=== PATIENT | female | born 1990 | race Caucasian/White ===

== ENCOUNTER 2020-12-19 05:45 | Day surgery (SDC) | payer OTHER ==
[2020-12-19] MEDS ORDERED: NEXPLANON68 MG SUB-Q (06:05)
--- NOTE | 2020-12-19 08:39 | NUR ---
PT ALERT, ORIENTED AND SUPPORTED BY HER SIG OTHER M[place]. PT IS PLEASANT, SEEMS INFORMED, ALL QUESTIONS ASKED ANSWERED. PT DID REQUEST PRAYER. M[place]ISON WILL STAY IN BLDG. GAVE BLESSING AND WILL FOLLOW NEEDED
--- NOTE | 2020-12-19 08:43 | NUR ---
12/19/20 0843 Lizbeth Redd 0840 PT ARRIVED IN PACU SLEEPY WITH NO C/O'S.
[2020-12-19] MEDS ORDERED: ACETAMINOPHEN500 MG PO (08:58)
[2020-12-19] MEDS ORDERED: OXYCODON-ACETA1 EAC2 PO (08:58)
[2020-12-19] MEDS ORDERED: IBUPROFEN600 MG PO (08:58)
--- NOTE | 2020-12-19 09:12 | NUR ---
PT IS BACK TO DS FROM PACU. SHE IS SLIGHTLY DROWSY, BUT EASILY WAKES UP TO ANSWER QUESTIONS APPROPRIATELY. IS AT THE BEDSIDE. WATER ON BEDSIDE TABLE. CALL LIGHT WITHIN REACH. DENIES WANTING A SNACK, BUT WOULD LIKE TO SIT UP A LITTLE BIT. NO ADDITIONAL NEEDS AT THIS TIME.
--- NOTE | 2020-12-19 10:22 | NUR ---
PATIENT ASSISTED OOB AND TO BATHROOM. GAIT STEADY. VOID WITHOUT DIFFICULTY. GAIT STEADY BACK TO ROOM. BANDAID AT UMBILICAL SITE SATURATED AND LEAKING. BANDAID REMOVED. 2X2 GUAZE AND TAPE PLACED OVER UMBLICAL SITE. IV SALINE LOCKED. VS CHECKED. AT BEDSIDE. PATIENT MEDICATED FOR PAIN WITH 1 TAB OF PERCOCET. PATIENT GETTING DRESSED WITH HELP FROM . CALL LIGHT WITHIN REACH.
--- NOTE | 2020-12-19 10:31 | NUR ---
JALEESA 0945: PT GIVEN APPLE SAUCE, SALTINES, AND APPLE JUICE.
--- NOTE | 2020-12-21 14:40 | PATH ---
[facility] [address] [facility] [employer], [place] [address] Signed SPECIMEN(S): A GALLBLADDER WITH STONES SPECIMEN SOURCE: A. GALLBLADDER WITH STONES CLINICAL HISTORY: Caculus of gallbladder with cholecystitis. FINAL PATHOLOGIC DIAGNOSIS: Gallbladder, cholecystectomy: - Chronic cholecystitis with cholesterolosis. - Cholelithiasis. NAL:cml:C2NR MICROSCOPIC EXAMINATION: Histologic sections of all submitted blocks are examined by light microscopy. These findings, together with the gross examination, support the pathologic diagnosis. GROSS DESCRIPTION: The specimen, labeled "SR," and designated on the requisition "gallbladder with stones," is received in formalin and consists of Specimen: Previously opened gallbladder. Dimensions: 8.9 x 4.1 x 0.5 cm. Serosa: Yellow-hayward smooth. Cystic Duct: unobstructed. Calculi: Four yellow bosselated calculi (0.8 x 0.7 x 0.4 cm in aggregate). Mucosa: Yellow hayward and velvety with yellow stippling. Wall thickness: 0.4 cm. Lymph node: Not grossly identified Additional: None. Emergency Room Tech sections are submitted in cassette (A1). AC (under the direct supervision of a pathologist) The Gross Description was prepared using a voice recognition system. The report was reviewed for accuracy; however, sound-alike word errors, addition and/or deletions may occur. If there is any question about this report, please contact Client Services. PERFORMING LABORATORY: The technical component was performed by [facility], [address] [place] [id number] ([employer] Specialist: Bijal Patterson MD; CLIA# [id number]). PATIENT NAME: ALEJANDRO MOTA PATHOLOGY DATE OF : [birth year] REPORT #: [id number] PHYSICIAN: STACEY PATHOLOGY PCP: NO PRIMARY CARE PHYSICIAN REPORT IS CONFIDENTIAL AND NOT TO BE RELEASED WITHOUT AUTHORIZATION [facility] [address], [place] [address] Signed Professional interpretation was performed by [facility], [address] [address] (CLIA# [id number]). Diagnostician: Keshia Freeman MD Pathologist Electronically Signed 12/21/2020 Copies: ~ PATIENT NAME: ALEJANDRO MOTA PATHOLOGY DATE OF : [birth year] REPORT #: [id number] PHYSICIAN: STACEY PATHOLOGY PCP: NO PRIMARY CARE PHYSICIAN REPORT IS CONFIDENTIAL AND NOT TO BE RELEASED WITHOUT AUTHORIZATION
--- NOTE | 2020-12-26 14:34 | OR ---
[facility] [address] [place], [place] [address] Signed DATE OF OPERATION: 12/19/2020 SURGEON: Jim Sue MD PREOPERATIVE DIAGNOSES: 1. Chronic calculous cholecystitis. 2. History of sleeve gastroplasty for obesity. POSTOPERATIVE DIAGNOSES: 1. Chronic calculous cholecystitis. 2. History of sleeve gastroplasty for obesity. 3. Right fundic uterine fibroid (large). PROCEDURES: 1. Laparoscopic cholecystectomy with intraoperative cholangiogram. 2. Surgeon-directed fluoroscopy. ANESTHESIA: General endotracheal, Juan Davalos CRNA and local 20 mL of 0.25% Marcaine with epinephrine. INDICATION: This 30-year-old white woman has had rather typical symptoms right upper abdominal and right subscapular pain following meals. She had an episode in early November, which was evaluated in [place] including a gallbladder ultrasound, which showed multiple stones. In addition, her bilirubin was elevated at 1.6, SGOT 1141, and SGPT of 876. Her symptoms resolved over time and currently she is being very careful regarding dietary intake, so as to avoid recurrence of the symptoms. I have recommended cholecystectomy, preferably by laparoscopic approach. She understands the risks of bleeding, infection, bile duct injury, need for open procedure, and other unforeseen complications and wished to proceed. Of additional note, the patient lost 60 pounds through a bariatric surgical procedure (sleeve gastrectomy). DESCRIPTION OF PROCEDURE: The patient was brought to the operating room, given a general endotracheal anesthetic. Preoperative antibiotic Ancef was given. Sequential compression device stockings were used and heparin subcutaneously administered. The abdomen was prepared with chlorhexidine solution and draped sterilely. There were several small laparoscopic Electronically Signed By: JIM SUE MD 12/26/20 1434 PATIENT NAME: ALEJANDRO MOTA OPERATIVE REPORT DATE OF : [birth year] REPORT #: [id number] PHYSICIAN: JIM SUE MD PCP: NO PRIMARY CARE PHYSICIAN REPORT IS CONFIDENTIAL AND NOT TO BE RELEASED WITHOUT AUTHORIZATION [facility] [address] [place], [place] [address] Signed trocar site incisions noted. An infraumbilical incision was made and using an open Avi cannula technique, the abdomen was entered and pneumoperitoneum achieved to a level of 14 mmHg of carbon dioxide gas. Intraabdominal inspection showed no sign of ascites or carcinomatosis. The gallbladder appeared chronically inflamed, not acutely inflamed and not particularly distended. Indeed, it was somewhat floppy in appearance. Three additional trocars were placed in usual configuration in the subxiphoid, right midclavicular, and right anterior axillary line. Intraabdominal inspection showed no significant scarring in the upper abdomen related to prior gastroplasty. Evaluation of the lower abdomen showed an erythematous slightly inflamed mass in the pelvis, which was later re-evaluated and ultimately found to be a fundic uterine leiomyoma. The gallbladder was elevated cephalad and retracted laterally and using blunt and electrocautery dissection, the triangle of Calot was dissected free. The cystic duct was easily identified as was the cystic artery. Cystic artery was doubly clipped and clip was applied across gallbladder cystic duct junction. A transverse choledochotomy was made in the cystic duct and Egress of clear bile was noted upon retrograde milking of the duct. Using the Guillaume-type cholangiocatheter, intraoperative cholangiography was undertaken showing free flow of contrast in the biliary tree with prompt emptying into the duodenum. There was no sign of filling defect or other abnormality. The catheter was removed and the cystic duct was triply clipped and divided and the gallbladder dissected free in a retrograde fashion using electrocautery. The gallbladder was extracted through the infraumbilical port site without problem, opened on the back table and found to have mulberry-appearing yellow gallstones that were small. There was no sign of neoplasm of the gallbladder mucosa. Irrigation was undertaken in subhepatic space. There was no sign of bleeding, bile leak, or other problems. Excess irrigation fluid was suctioned free. Reinspection of the lower abdominal findings was undertaken showing the erythematous lesion to actually be a relatively large uterine fibroid at the superior lateral aspect of the right cornu of the uterus. The round ligament and fallopian tube were independently free of this area. The ovary proper was not able to be identified and I did not feel it warranted too much further manipulation, assured that the lesion of the uterus indeed was a uterine fibroid. The trocars were then removed under direct visualization showing no sign of bleeding except for minimal oozing of one of the 5 mm ports on the right side. This was secured with electrocautery. Plans were then made for closure. A 10 mL of 0.25% Marcaine with epinephrine was injected at the umbilical port site and an additional 10 mL in the other 3 ports in the upper abdomen. The skin was then closed with interrupted 3-0 Vicryl. Steri-Strips were applied. The patient was extubated and taken to recovery room in good condition having suffered no complications. Sponge, needle, and counts were correct x3. Blood loss was minimal. There were no complications. Electronically Signed By: JIM SUE MD 12/26/20 1434 PATIENT NAME: ALEJANDRO MOTA OPERATIVE REPORT DATE OF : [birth year] REPORT #: [id number] PHYSICIAN: JIM SUE MD PCP: NO PRIMARY CARE PHYSICIAN REPORT IS CONFIDENTIAL AND NOT TO BE RELEASED WITHOUT AUTHORIZATION [address] [place] [address] Signed MD LITTLE Adams/CORKY /[id number] cc: Parul Weinstein MD Copies: PARUL WEINSTEIN MD ~ Electronically Signed By: JIM SUE MD 12/26/20 1434 PATIENT NAME: ALEJANDRO MOTA OPERATIVE REPORT DATE OF : [birth year] REPORT #: [id number] PHYSICIAN: JIM SUE MD PCP: NO PRIMARY CARE PHYSICIAN REPORT IS CONFIDENTIAL AND NOT TO BE RELEASED WITHOUT AUTHORIZATION
== END 2020-12-19 10:43 | disposition home or self-care (01) ==
LOC: DS 05:45 → OPS 05:45 → DS 07:00 → OPS 10:43
PROVIDERS: ATTEND Surgery
PROC: BF12YZZ Fluoroscopy of Gallbladder using Other Contrast (ICD-10-PCS; 2020-12-19)
PROC: 0FT44ZZ Resection of Gallbladder, Percutaneous Endoscopic Approach (ICD-10-PCS; principal; 2020-12-19 07:00)
DX: K80.10 Calculus of gallbladder with chronic cholecystitis without obstruction (principal); K21.00 Gastro-esophageal reflux disease with esophagitis, without bleeding; D25.9 Leiomyoma of uterus, unspecified; F17.200 Nicotine dependence, unspecified, uncomplicated; Z98.84 Bariatric surgery status; Z20.822 Contact with and (suspected) exposure to COVID-19
CPT/HCPCS: 00790; 74300; J0330; J0690; J1100; J1644; J1885; J2405; J2704; J3010; J3475; J7121; Q9967

== ENCOUNTER 2025-03-02 05:53 | Day surgery (SDC) | payer OTHER ==
[~2025-03-02] VITALS: Ht 177.8 cm; Wt 91.0 kg
--- NOTE | ~2025-03-02 | OR ---
[facility] [address] [place] [id number] Draft DATE OF OPERATION: 03/02/2025 SURGEON: Peewee Jackson DO PREOPERATIVE DIAGNOSES: 1. Abnormal uterine bleeding. 2. Fibroid uterus. POSTOPERATIVE DIAGNOSES: 1. Abnormal uterine bleeding. 2. Fibroid uterus. ANESTHESIA: General. PROCEDURES: 1. Total laparoscopic hysterectomy. 2. Completion of bilateral salpingectomy with removal of residual left fimbria. 3. Cystoscopy. ESTIMATED BLOOD LOSS: 75 mL. SPECIMENS: 1. Uterus, cervix, and fibroid. 2. Ovarian cyst wall. 3. Portion of the left tube. COMPLICATIONS: None. DRAINS: Ly to gravity. FINDINGS: Normal liver and stomach and status post cholecystectomy. In the pelvis, normal pelvic peritoneum without evidence of endometriosis or other pathology. The uterus with a large right intramural/subserosal fibroid distorting the round ligament. Status post bilateral salpingectomy with some residual fimbria on the left. Right ovary was normal. Left ovary had a small hemorrhagic cyst with some oozing that was made hemostatic after PATIENT NAME: ALEJANDRO MOTA OPERATIVE REPORT DATE OF : [birth year] REPORT #: [id number] PHYSICIAN: PEEWEE JACKSON) PCP: NO PRIMARY CARE PHYSICIAN REPORT IS CONFIDENTIAL AND NOT TO BE RELEASED WITHOUT AUTHORIZATION [facility] [address] [place] [id number] Draft excision of the cyst wall. INDICATIONS: Ms. Mota is a very pleasant 34-year-old female with a history of symptomatic fibroid uterus, who failed conservative measures. She desires definitive treatment with total laparoscopic hysterectomy, bilateral salpingectomy and cystoscopy. Risks, benefits, and alternatives were discussed in detail with the patient. The patient understands and wished to proceed with the procedure. DESCRIPTION OF PROCEDURE: The patient was taken to the OR where time-out was performed to confirm correct patient and correct procedure. General anesthesia was adequately established. The patient was prepped and draped in the dorsal lithotomy position with her feet in Yellofin stirrups. ICPs were on and running and no preoperative heparin was indicated. The patient did receive Ancef 2 g preoperatively per SCIP protocol. A Ly catheter was inserted. Weighted speculum was placed in the vagina. The anterior lip of the cervix was grasped with an Allis clamp. The cervix was gently dilated using Hegar dilators and a VCare uterine manipulator was placed without difficulty. The surgeon's gloves were changed and attention was turned to the abdomen. Just inferior to the umbilicus, a 3 to 4 cm vertical incision was made through a prior scar after infiltration with 0.25% Marcaine with epinephrine. Blunt dissection down to the fascia. Fascia was grasped with hemostats, elevated and entered sharply with Metzenbaum scissors. Stay sutures were placed of 0 Vicryl at the superior and inferior edge of the incision. The peritoneum was entered bluntly and no adhesions were palpated. A Avi operative port was placed without difficulty and pneumoperitoneum was established. The arthroscope was inserted and an 8 mm expanding port was placed in the right lower quadrant under direct visualization without complication. A 5 mm assist port was placed in the left lower quadrant under direct visualization without complication. Survey of the abdomen and pelvis was performed demonstrating a normal liver status post cholecystectomy, normal stomach and the above pelvic findings. Residual fimbriated end of the left tube was noted and this was excised using LigaSure device with excellent hemostasis. Left hemorrhagic cyst was noted with some oozing. The cyst wall was grasped and removed and an oozing edge of the ovary was carefully fulgurated with the LigaSure device. The left uteroovarian ligament was then fulgurated and divided using LigaSure. The left round ligament was fulgurated and divided using LigaSure. The leaves of the broad ligament were divided, dissecting the posterior leaf from the midportion of the round to the uterosacral ligament and then across the posterior edge of the vaginal cup. The anterior leaf of the broad ligament was divided from the midportion of the round to the vesicouterine reflection and the bladder was pushed well below the vaginal cup. Uterine vessels were identified, fulgurated and divided with excellent hemostasis. The process was repeated on the right side, although it was somewhat more difficult due to the large subserosal fibroid distorting the anatomy. The utero-ovarian ligament was identified, PATIENT NAME: ALEJANDRO MOTA OPERATIVE REPORT DATE OF : [birth year] REPORT #: [id number] PHYSICIAN: PEEWEE JACKSON (CECILY) DO PCP: NO PRIMARY CARE PHYSICIAN REPORT IS CONFIDENTIAL AND NOT TO BE RELEASED WITHOUT AUTHORIZATION [facility] [address] [place], [place] [address] Draft fulgurated and divided. The round ligament was then fulgurated and divided. The leaves of the broad ligament were divided completing dissection of the peritoneum and pushing the bladder well below the vaginal cup. The uterine vessels on the right were identified, fulgurated and divided with excellent hemostasis. Sonicision device was then used to perform colpotomy in a circumferential manner following the green edge of the vaginal cup. The uterus, cervix, and fibroids were delivered through the vagina without difficulty and sent to pathology for further evaluation. Pneumoperitoneum was re-established by placing a wet lap sponge inside of a glove and placing this inside the vagina. The pelvis was then irrigated. A small oozing vessel on the left cervix was identified. This was made hemostatic with gentle fulguration with the LigaSure device. The remainder of the pelvis was hemostatic. Colpotomy was then repaired using V-Loc suture with an Endostitch device with careful attention to incorporate the uterosacral ligaments bilaterally and the vaginal epithelium with each bite. Excellent apical support and hemostasis was appreciated. The pelvis was irrigated and again found to be hemostatic. Tisseel was selected and applied to the dissection plane and to the bed of the hemorrhagic cyst. A small amount of oozing was then noted from the peritoneal edge of the anterior leaf of the broad ligament. This was carefully evaluated and made hemostatic with the LigaSure device. Pelvis was hemostatic. Pneumoperitoneum was reduced. Trocars were removed. Infraumbilical fascia was reapproximated using 0 Vicryl in a running nonlocked manner and the stay sutures were plicated in the midline to reinforce this repair. The skin was then repaired using 3-0 Vicryl Rapide and subcuticular stitch with excellent hemostasis and cosmesis. Attention was then turned to the cystoscopy. The Ly catheter was removed. A 70-degree cystoscope was then placed in the urethral meatus and advanced under direct visualization of the bladder. Normal bladder dome. Bilateral ureteral jets were appreciated. The bladder was drained. Ly catheter was reinserted and the patient was taken to PACU in good and stable condition. Sponge, needle, and instrument counts correct x2 at the end of procedure. DO ANNABELLA Granado/JOSL /[id number] PATIENT NAME: ALEJANDRO MOTA OPERATIVE REPORT DATE OF : [birth year] REPORT #: [id number] PHYSICIAN: PEEWEE JACKSON DO (JD) PCP: NO PRIMARY CARE PHYSICIAN REPORT IS CONFIDENTIAL AND NOT TO BE RELEASED WITHOUT AUTHORIZATION [address] [address] Draft Copies: ~ PATIENT NAME: ALEJANDRO MOTA OPERATIVE REPORT DATE OF : [birth year] REPORT #: [id number] PHYSICIAN: PEEWEE JACKSON DO (JD) PCP: NO PRIMARY CARE PHYSICIAN REPORT IS CONFIDENTIAL AND NOT TO BE RELEASED WITHOUT AUTHORIZATION
[~2025-03-02 05:53] MED LIST: ACETAMINOPHEN500 MG PO; BUSPIRONE HCL5 MG PO; IBUPROFEN600 MG PO; LACTATED RINGER'S 1,000 ML IV SCH; NEXPLANON68 MG SUB-Q; OMEPRAZOLE20 MG PO; OXYCODON-ACETA1 EAC2 PO
[2025-03-02 06:04] VITALS: BP 131/89
[2025-03-02] MEDS ORDERED: IBLOOD GLUCOSE TEST STRIP 1 EA TEST VI PRN ×2 (07:00→09:15)
[2025-03-02] MEDS ORDERED: CEFAZOLIN SODIUM 2 GM in SODIUM CHLORIDE 0.9% 100 ML IV SCH (07:00)
[2025-03-02] MEDS ORDERED: LIDOCAINE HCL 1% 5 ML SDV INJ ONE (07:00)
[2025-03-02] MEDS ORDERED: DEXAMETHASONE SOD PHOS 4 MG/ML VIAL ONE (07:14)
[2025-03-02] MEDS ORDERED: KETAMINE in NS 50 MG/5 ML SYR ONE (07:14)
[2025-03-02] MEDS ORDERED: fentaNYL citrate 100 MCG/2 ML VIAL ONE (07:14)
[2025-03-02] MEDS ORDERED: LIDOCAINE HCL 2% 5 ML SDV ONE ×2 (07:14→08:25)
[2025-03-02] MEDS ORDERED: ROCURONIUM BROMIDE 50 MG/5 ML SYR ONE (07:14)
[2025-03-02] MEDS ORDERED: MAGNESIUM SULFATE 1 GM/2 ML VIAL ONE ×2 (07:14→09:01)
[2025-03-02] MEDS ORDERED: SODIUM CHLORIDE 0.9% 40 ML IV ONE (07:15)
[2025-03-02] MEDS ORDERED: ACETAMINOPHEN 1,000 MG/100 ML VIAL ONE (07:15)
--- NOTE | 2025-03-02 08:04 | NUR ---
PT NOT AVAILABLE FOR VISIT. PROVIDED PRAYER.
[2025-03-02] MEDS ORDERED: SODIUM CHLORIDE 0.9% 20 ML IV ONE (08:25)
[2025-03-02] MEDS ORDERED: SUGAMMADEX SODIUM 200 MG/2 ML ML ONE (09:04)
[2025-03-02] MEDS ORDERED: FLUORESCEIN SODIUM 500 MG/5 ML ML ONE (09:04)
[2025-03-02] MEDS ORDERED: fentaNYL citrate 50 MCG/ML SDV IV PRN (09:15)
[2025-03-02] MEDS ORDERED: NALOXONE HCL 0.4 MG SYR IV PRN ×2 (09:15→09:30)
[2025-03-02] MEDS ORDERED: KETOROLAC TROMETHAMINE 30 MG/ML VIAL IV PRN (09:15)
[2025-03-02] MEDS ORDERED: FAMOTIDINE 20 MG/ 2 ML VIAL IV PRN (09:30)
[2025-03-02] MEDS ORDERED: SIMETHICONE 80 MG CHEW PO PRN (09:30)
[2025-03-02] MEDS ORDERED: MAGNESIUM HYDROXIDE/AL HYDROX 30 ML CUP PO PRN (09:30)
[2025-03-02] MEDS ORDERED: OXYCODONE/APAP 5/325 TAB PO PRN (09:30)
[2025-03-02] MEDS ORDERED: PROCHLORPERAZINE EDISYLATE 10 MG/2 ML VIAL IV PRN (09:30)
[2025-03-02] MEDS ORDERED: MORPHINE SULFATE 10 MG/ML VIAL IV PRN (09:30)
--- NOTE | 2025-03-02 09:49 | NUR ---
03/02/25 0949 Beulah Waters 0936- PT PRESENTS TO PACU, SEMI POLLOCK POSITION, NON REACTIVE TO STIMULUS. BREATHING EVEN AND NON LABORED, O2 AT 6L PER MASK. LR INFUSING TO LW IV. ABD SOFT, NON DISTENDED. 3 ABD LAP SITES- RLQ, UMBILICUS, LLQ COVERED WITH BANDAIDS, CDI. MCMAHON CATHETER DRAINING BRIGHT COLORED URINE MIXED WITH FLOURESCINE. ALL MONITORS IN PLACE. 0939- PT WAKES TO TACTILE STIMULUS, OPENS EYES SLIGHTLY, REORIENTED TO TIME AND PLACE. DENIES PAIN AND NAUSEA. 0946- PT WAKES EASILY TO VERBAL STIMULI, DENIES PAIN OR NAUSEA, MOVED TO ROOM AIR. PT EASILY FALLS BACK TO SLEEP. WILL CONTINUE TO MONITOR.
[2025-03-02 10:40] VITALS: BP 136/89
--- NOTE | 2025-03-02 10:48 | NUR ---
1035 PT ARRIVED TO DAY SURGERY FROM PACU VIA STREACHER. PT TEARFUL, PT AWAKE AND ORIENTED. PT SPOUSE IN ROOM. REPORT TAKEN FROM JASON Lala RN. PT SITTING UPRIGHT IN BED, TEARFUL AND WIPING TEARS. PT STATES SHE HAS 5/10 PAIN, PT STATES 'ITS OKAY, I AM OKAY. I JUST NEED TO CRY IT OUT.' PT HAS NO NAUSEA AT THIS TIME. SURGICAL SITES VISUALIZED, SMALL SPOTTING NOTED IN LEFT ABDOMEN LAP SITE. PT REPORTS THAT PAIN IS A DULL ACHE. DISCUSSED PAIN MANAGEMENT PLAN OF GETTING SOME CRACKERS AND SNACKS IN STOMACH BEFORE GIVING PAIN MEDICATION. PT UNDERSTANDING. VITALS TAKEN. IV ASSESSED. PT REQUESTED WARM WASH CLOTH FOR FACE AT THIS TIME. PT GIVEN LUKEWARM WASHCLOTH. PT HAS CALL LIGHT WITHIN REACH. PT BED IS LOW AND LOCKED.
--- NOTE | 2025-03-02 11:05 | NUR ---
1100 PT GIVEN PAIN MEDICATION FOR 5/10 PAIN. PT REPORTING SLIGHT NAUSEA. PT REPORTS THAT PAIN MEDCIATION CAN MAKE HER NAUSEOUS SOMETIMES. DISCUSSED ZOFRAN WITH PT, PT STATES ODT ZOFRAN WORKS WELL FOR HER. PT STATE SHE WILL USE CALL LIGHT IF NAUSEA BECOMES MORE INTENSE. INCENTIVE SPIROMETER GIVEN TO PT, INSTRUCTIONS GONE OVER WITH PT. PT ABLE TO DEMONSTRATE THE USE OF IS. PT HAS CALL LIGHT WITHIN REACH, AND BED IS LOW AND LOCKED.
--- NOTE | 2025-03-02 11:11 | NUR ---
1110 SPOKE WITH PT. PT REPORTS THAT PAIN AND NAUSEA ARE GETTING BETTER. PT REPORTS BEING SLEEPY. TURNED DOWN LIGHTS FOR PT. PT HAS CALL LIGHT WITHIN REACH AND PT SPOUSE IN ROOM.
[2025-03-02 11:36] VITALS: BP 128/84
--- NOTE | 2025-03-02 11:45 | NUR ---
1135 HOURLY ROUNDING DONE WITH PT. PT REPORTS TOLERABLE 4/10 PAIN, PT STATES IT 'FEELS CRAMPY.' HEAT PACK GIVEN TO PT AND APPLIED TO LOWER ABDOMEN BUT NOT ON TOP OF SURGICAL SITES. SMALL AMOUNT OF RED DRAINAGE NOTED FROM VAGINA. IV ASSESSED. PT REPORTS NO NAUSEA. PT SPOUSE IN ROOM. PT RESTING, AND REPORTS NO URGE TO URINATE AT THIS TIME. PT HAS CALL LIGHT WITHIN REACH.
--- NOTE | 2025-03-02 12:13 | NUR ---
PATIENT REQUESTED TO GET UP TO BATHROOM TO VOID. PATIENT ASSISTED OOB AND TO BATHROOM. GAIT STEADY. UNABLE TO VOID AT THIS TIME. GAIT STEADY BACK TO BED. WILL WAIT LONGER BEFORE TRYING TO VOID AGAIN. NO OTHER NEEDS AT THIS TIME. IN ROOM WITH PATIENT. CALL LIGHT WITHIN REACH.
[2025-03-02 12:41] VITALS: BP 125/74
--- NOTE | 2025-03-02 12:48 | NUR ---
1235 HOURLY ROUNDING DONE WITH PT. VITALS TAKEN. IV ASSESSED. PT REPORTS TOLERABLE 4/10 PAIN, AND SLIGHT NAUSEA BUT PT SAYS IS TOLERABLE. PT STATES SHE FEELS THE URGE TO PEE, AND STATES SOME DISCOMFORT BUT UNSURE IF IT IS FROM SURGERY OR NEEDING TO URINATE. MINT TEA GIVEN TO PT PER REQUEST, AND NEW CUP OF WATER. DISCUSSED WITH PT THAT IN ABOUT HALF HOUR WE WILL ATTEMPT TO URINATE AGAIN AND USE A COLD WASH CLOTH TO ASSIST IN PT URINATING. PT UNDERSTANDING. PT UNDERSTANDING THAT IF URGE INCREASES OR DISCOMFORT INCREASES TO ALERT RN WITH CALL LIGHT. PT SPOUSE IN ROOM. PT HAS CALL LIGHT WITHIN REACH, BED LOW AND LOCKED.
[2025-03-02] MEDS ORDERED: SIMETHICONE 80 MG CHEW PO SCH (13:00)
[2025-03-02] MEDS ORDERED: LACTATED RINGER'S 1,000 ML IV ONE (14:00)
[2025-03-02 14:04] VITALS: BP 120/83
--- NOTE | 2025-03-02 14:09 | NUR ---
1320 PT REPORTS URGE TO URINATE, PT AMBULATED TO BATHROOM TO ATTEMPT TO VOID. PT UNABLE TO VOID AT THIS TIME. PT ATTEMPTED TO USE COLD WASH CLOTH AND BABY WIPES TO STIMULATE PT TO URINATE. PT UNABLE TO VOID. PT AMBUALTED BACK TO ROOM AND IS BACK IN BED. PT REPORTS NAUSEA AT THIS TIME, RN WILL RETERIVE NAUSEA MEDICATION. 1325 DR SUN IN ROOM SPEAKING WITH PT. DR SUN GIVES VERBAL ORDER FOR BLADDER SCAN. DR SUN INFORMS RN THAT DR SAHA WILL BE TAKING OVER AFTER THIS. 1330 PT SPOUSE ALERT RN THAT PT IS VOMITING. RN ENTERED ROOM AND PT IS SITTING ON EDGE OF BED VOMITING INTO EMESIS BAG. PT HAS THROWN UP 200 OF CLEAR EMESIS. 1331 ZOFRAN GIVEN, SEE EMAR. 1345 BLADDER SCAN DONE. 164 MLS NOTED IN BLADDER AT THIS TIME. PT BACK IN BED AND CALL LIGHT WITHIN REACH. PT REPORTS NO NAUSEA AT THIS TIME NOW, PT REPORTS 6/10 PAIN AFTER VOMITING. [address] SAHA TO UPDATE ON SITUATION. DR SAHA GIVES VERBAL ORDER FOR 1L OF LR TO BE GIVEN IV A BOLUS ONCE NOW. 1400 DISCUSSED PLAN OF ACTION WITH PT. LR BOLUS STARTED. PT PAIN IS 6/10 DISCUSSED PLAN OF GIVING BOLUS TO PT TO ASSIST IN THE PATIENT URINATING AND ALSO TO ASSIST IN PATIENT NAUSEA. ONCE NAUSEA HAS SUBSIDED WE WILL REVISIT PAIN, PT IS AWARE THAT IF PAIN INCREASES DURING BOLUS TO ALERT RN. PT STATES UNDERSTANDING AND STATES 'I AM OKAY RIGHT NOW.' PT HAS CALL LIGHT WITHIN REACH AND PT SPOUSE IN ROOM.
[2025-03-02] MEDS ORDERED: SEVOFLURANE 250 ML BTL INH ONE (14:49)
[2025-03-02 14:55] VITALS: BP 131/75
--- NOTE | 2025-03-02 15:10 | NUR ---
1450 HOURLY VITALS DONE. IV ASSESSED. IV LR BOLUS COMPLETE. DISCHARGE INFORMATION GONE OVER WITH PT AND SPOUSE. NO QUESTIONS AT THIS TIME. PT STATES SHE FEELS THE URGE TO URINATE. PT ABLE TO AMBUALTE TO BATHROOM AND VOID 300 MLS OF CLEAR YELLOW URINE. PT ABLE TO AMBULATE BACK TO ROOM. PT REPORTS TOLERABLE 2/10 PAIN. PT REPORTS NO NAUSEA AT THIS TIME. PT GETTING DRESSED WITH PT SPOUSE'S ASSISTANCE. 1503 IV DISCONTINUED FOR DISCHARGE. 1505 PT DISCHARGED FROM DAY SURGERY VIA WHEELCHAIR TO THE FRONT OF THE HOSPITAL TO PT'S SPOUSE'S CAR. PT HAS PERSONAL ITEMS IN LAP, AND PT SPOUSE HAS DISCHARGE INFORMATION.
--- NOTE | 2025-03-04 11:55 | PATH ---
[facility] [address], [place] [address] Signed SPECIMEN(S): A UTERUS, CERVIX, LEFT FALLOPIAN TUBE, FIBROID SPECIMEN SOURCE: A. UTERUS, CERVIX, LEFT FALLOPIAN TUBE, FIBROID CLINICAL HISTORY: Intramural uterine fibroids, AUB, dyspareunia, dysmenorrhea FINAL PATHOLOGIC DIAGNOSIS: Uterus with left fallopian tube, hysterectomy and left salpingectomy: - 207 gram uterus with: - Hyalinized leiomyomata. - Proliferative endometrium. - Cervix with no significant histopathologic changes. - Left fallopian tube with small paratubal cyst. DWS:clv MICROSCOPIC EXAMINATION: Histologic sections of all submitted blocks are examined by light microscopy. These findings, together with the gross examination, support the pathologic diagnosis. GROSS DESCRIPTION: The specimen, labeled and designated "Rill, S., left portion of fallopian tube, cyst wall, cervix, uterus with fibroid per requisition," is received in formalin and consists of a 207 g, 10 cm fundus to cervix, 6.7 cm cornu to cornu, 4.1 cm anterior to posterior uterus with absent right adnexa and left ovary. The serosal surface is hayward-pink and smooth with a 6 x 5.2 x 4.6 cm nodule extending from the right anterior aspect of the uterus. The attached cervix measures 4.3 x 4.2 cm and has a 0.9 cm slitlike os endometrial canal measures 5.2 x 2.5 cm and has a hayward-pink endometrium averaging 0.2 cm in thickness. The myometrium averages 1.7 cm in thickness and is hayward-pink and trabecular there are no additional white whorled nodules except for the 1 previously described extending from the anterior aspect. This nodule is hayward-yellow and diffusely necrotic in appearance. There are no discrete areas of hemorrhage. Also received is a 1 x 0.7 x 0.5 cm suspected portion of fallopian tube with multiple cystic structures ranging from 0.7 to 1 cm in greatest dimension. Otherwise, no additional fallopian tube is identified. Policy Intern PATIENT NAME: ALEJANDRO MOTA PATHOLOGY DATE OF : 89 REPORT #: [id number] PHYSICIAN: STACEY PATHOLOGY PCP: NO PRIMARY CARE PHYSICIAN REPORT IS CONFIDENTIAL AND NOT TO BE RELEASED WITHOUT AUTHORIZATION [facility] [address], [place] [address] Signed sections are submitted as follows: Cassette Summary: (A1) anterior and posterior cervix (A2) anterior and posterior endomyometrium (A3-A4) nodule (A5) suspected fallopian tube with cystic structures AA (under the direct supervision of a pathologist) The Gross Description was prepared using a voice recognition system. The report was reviewed for accuracy; however, sound-alike word errors, addition and/or deletions may occur. If there is any question about this report, please contact Client Services. PERFORMING LABORATORY: Technical component was performed by [facility], [address] [place] [id number] (CLIA# [id number]). Professional interpretation was performed by [facility], [address] [place] [phone] (CLIA#: [id number]). Diagnostician: Hu Marsh MD Pathologist Electronically Signed 03/04/2025 Copies: ~ PATIENT NAME: ALEJANDRO MOTA PATHOLOGY DATE OF : [birth year] REPORT #: [id number] PHYSICIAN: STACEY PATHOLOGY PCP: NO PRIMARY CARE PHYSICIAN REPORT IS CONFIDENTIAL AND NOT TO BE RELEASED WITHOUT AUTHORIZATION
== END 2025-03-02 15:05 | disposition home or self-care (01) ==
LOC: DS 05:53
PROVIDERS: ATTEND Obstetrics & Gynecology
PROC: 0UT74ZZ Resection of Bilateral Fallopian Tubes, Percutaneous Endoscopic Approach (ICD-10-PCS; 2025-03-02)
PROC: 0UT94ZZ Resection of Uterus, Percutaneous Endoscopic Approach (ICD-10-PCS; principal; 2025-03-02 07:30)
DX: D25.1 Intramural leiomyoma of uterus (principal); D25.2 Subserosal leiomyoma of uterus; N83.202 Unspecified ovarian cyst, left side; D25.9 Leiomyoma of uterus, unspecified; N83.8 Other noninflammatory disorders of ovary, fallopian tube and broad ligament; K21.9 Gastro-esophageal reflux disease without esophagitis; Z87.891 Personal history of nicotine dependence; Z90.49 Acquired absence of other specified parts of digestive tract
CPT/HCPCS: 00840; 51798; J0131; J0688; J1100; J1171; J1885; J2003; J2405; J2704; J3010; J3475; J3490; J7121